=== PATIENT | male | born 2000 | race Caucasian/White ===

== ENCOUNTER 2019-05-22 03:41 | Emergency (ER) | payer OTHER ==
[~2019-05-22] VITALS: Ht 188 cm; Wt 127.3 kg
[2019-05-22] MEDS ORDERED: ADDERALL20 MG PO (03:52)
[2019-05-22] MEDS ORDERED: CELEXA 20MG20 MG/TAB PO (03:53)
[2019-05-22 04:58] VITALS: BP 113/74; PULSE 87; TEMP 98.4
== END 2019-05-22 04:59 | disposition home or self-care (01) ==
LOC: COL.ER 03:41
DX: S61.214A Laceration without foreign body of right ring finger without damage to nail, initial encounter (principal); S61.216A Laceration without foreign body of right little finger without damage to nail, initial encounter; F90.9 Attention-deficit hyperactivity disorder, unspecified type; F32.9 Major depressive disorder, single episode, unspecified; F17.290 Nicotine dependence, other tobacco product, uncomplicated; Z88.0 Allergy status to penicillin; W25.XXXA Contact with sharp glass, initial encounter

== ENCOUNTER 2020-01-08 21:14 | Emergency (ER) | payer OTHER ==
[~2020-01-08] VITALS: Ht 188 cm; Wt 129.5 kg
[~2020-01-08 21:14] MED LIST: ADDERALL20 MG PO; CELEXA 20MG20 MG/TAB PO
[2020-01-08] MEDS ORDERED: ADDERALL XR25 MG PO (21:22)
[2020-01-08 21:23] VITALS: TEMP 98.2
[2020-01-08] MEDS ORDERED: DESYREL 50MG50 MG PO (21:23)
[2020-01-08 22:15] LABS: BASO # 0.1 (0.0-0.2); BASO % 0.8 % (0.0-2.0); EOS % 0.6 % (0-4.0); GRAN # 4.1 (1.4-6.5); GRAN % 63.6 % (42.2-75.2); HEMATOCRIT 41.5 % (36.0-47.0); HEMOGLOBIN 14.7 g/dl (12.5-16.1); LYMPH # 1.6 (1.2-3.4); LYMPH % 25.2 % (20.0-51.0); MEAN CELL VOLUME 87 fl (80.0-95.0); MEAN CORPUSCULAR HEMOGLOBIN 31 pg (26.0-32.0); MEAN CORPUSCULAR HGB CONC 35 g/dl (33.0-37.0); MEAN PLATELET VOLUME 10.8 fl (7.4-10.4); MONO # 0.6 (0.1-0.6); MONO % 9.6 % (1.7-9.3); PLATELET COUNT 251 K/mm3 (130-400); RED BLOOD COUNT 4.75 M/mm3 (4.20-5.60); REDCELL DISTRIBUTION WIDTH-CV 12.1 % (11.5-14.5)
[2020-01-08 22:25] LABS: ALBUMIN 4.6 gm/dL (3.5-5.0); BILIRUBIN,TOTAL 0.5 mg/dL (0.0-1.0); CALCIUM 9.5 mg/dL (8.4-10.2); CREATININE, serum 0.94 (0.66-1.25); POTASSIUM 3.9 mmol/L (3.4-5.0); TOTAL PROTEIN 7.7 gm/dL (6.4-8.2)
[2020-01-08 23:50] VITALS: BP 144/98; PULSE 99
== END 2020-01-08 23:52 | disposition home or self-care (01) ==
LOC: COL.ER 21:14
PROVIDERS: Physician Assistant
DX: R51.9 Headache, unspecified (principal); T43.215A Adverse effect of selective serotonin and norepinephrine reuptake inhibitors, initial encounter; F32.9 Major depressive disorder, single episode, unspecified; F90.9 Attention-deficit hyperactivity disorder, unspecified type
CPT/HCPCS: J2060; J7030